=== PATIENT | male | born 1985 | race African-American/Black ===

== ENCOUNTER 2024-05-03 11:31 | Emergency (ER) | payer OTHER ==
[~2024-05-03] VITALS: Ht 175.3 cm; Wt 78.6 kg
[2024-05-03] MEDS ORDERED: CETI-24 PO (14:35)
[2024-05-03] MEDS ORDERED: VENTAER INH (14:35)
[2024-05-03] MEDS ORDERED: BREAMIS10 MC (14:35)
[2024-05-03 14:41] VITALS: BP 139/98; TEMP 96.9; O2SAT 100
== END 2024-05-03 14:46 | disposition home or self-care (01) ==
LOC: M ED 11:31
DX: J06.9 Acute upper respiratory infection, unspecified (principal); J30.9 Allergic rhinitis, unspecified